=== PATIENT | male | born 1955 | race African-American/Black ===

== ENCOUNTER 2016-05-25 17:34 | Inpatient (IN) | payer MEDICARE, MEDICAID ==
[~2016-05-25] VITALS: Ht 167.6 cm; Wt 54.9 kg
[~2016-05-25 17:34] MED LIST: ACET-2178 PO; ALBU2.5V13 IH; AMIO100T4 PO; ASCO500C6 PO; ASPI-1035 PO; CINA30 PO; CLON0.1T PO; DIPH25CA83 PO; DIPH50CA4 IM; DOCU-138 PO; FAMO20TA8 PO; FERR-63 PO; FLEET ENEMA PR; GUAI-735 PO; LACT10SO6 PO; LISI-604 PO; LOPE2TAB26 PO; LOSA25TA12 PO; METO50TA5 PO; NEPVIT PO; NITR0.4T3 SL; ONDA4SOL2 PO; WARF4TAB40 PO; WARF5TAB76 PO; WARF6TAB22 PO; ZINC SULFATE PO; ZOLP5TAB8 PO; [UNRECOGNIZED DRUG - OTHER] PO; renvela PO
[2016-05-25] MEDS ORDERED: VANCOMYCIN 1 G PREMIX 200 ML IV ONE (18:30)
[2016-05-25] MEDS ORDERED: PIPERACILLIN/TAZ 3.375G PREMIX 50 ML IV ONE (18:30)
[2016-05-25 18:55] LABS: HEMATOCRIT. 32.8 % (42.0-52.0); HEMOGLOBIN. 10.5 g/dL (14.0-18.0); MEAN CORPUSCULAR HEMOGLOBIN 30.1 pg (28.0-32.0); MEAN CORPUSCULAR HGB CONC 32.1 g/dL (31.0-37.0); MEAN CORPUSCULAR VOLUME 93.8 fL (80.0-94.0); MEAN PLATELET VOLUME 6.8 fl (7.4-10.4); PLATELET 168 x1000/uL (130-400); RED CELL DISTRIBUTION WIDTH 19.2 % (11.6-14.6); WHITE BLOOD COUNT 6.3 x1000/uL (4.5-11.0)
[2016-05-25 18:57] LABS: DIFFERENTIAL COMMENT 1
[2016-05-25 18:59] LABS: INR 1.4; PROTHROMBIN TIME 14.6 sec
[2016-05-25 19:01] LABS: CHLORIDE 95 mEq/L (98-107); INDEX HEMOLYSI 1 (1-3); INDEX ICTERIC 1 (1-4); INDEX LIPEMIC 1 (1-3)
[2016-05-25 19:07] LABS: ALANINE AMINOTRANSFERASE 20 IU/L (13-61); ALBUMIN 3.1 g/dL (3.4-5.0); ANION GAP 15; CALCIUM 8.3 mg/dL (8.5-10.1); CARBON DIOXIDE 33 mEq/L (21-32); UREA NITROGEN BLOOD 23 mg/dL (7-21); eGFR 18 mL/min (>60)
[2016-05-25 19:10] LABS: PLATELET ESTIMATE NORMAL
[2016-05-25] MEDS ORDERED: VANCOMYCIN 1 G PREMIX 200 ML IV SCH (23:45)
[2016-05-25] MEDS ORDERED: DOCUSATE SODIUM 100MG CAPSULE PO PRN (23:45)
[2016-05-25] MEDS ORDERED: HYDROCODONE/ACETAMINOPHEN 10/325MG TABLET PO PRN (23:45)
[2016-05-25] MEDS ORDERED: ONDANSETRON HCL 4MG/2ML VIAL IV PRN (23:45)
[2016-05-25] MEDS ORDERED: IPRATROPIUM/ALBUTEROL 0.5-3(2.5)MG/3ML NEB INH PRN (23:45)
[2016-05-25] MEDS ORDERED: NA PHOS,M-B/NA PHOS,DI-BA ENEMA 118ML PR PRN (23:45)
[2016-05-25] MEDS ORDERED: GUAIFENESIN 200MG/10ML SUGAR FREE UDC PO PRN (23:45)
[2016-05-25] MEDS ORDERED: CLONIDINE 0.1MG TABLET PO PRN (23:45)
[2016-05-25] MEDS ORDERED: MAGNESIUM/ALUMINUM HYDROXIDE/SIMETHICONE 30ML UDC PO PRN (23:45)
[2016-05-25] MEDS ORDERED: HYDROCODONE/APAP 7.5/325MG 1 TAB TABLET PO PRN (23:45)
[2016-05-25] MEDS ORDERED: HYDROMORPHONE HCL/PF 2MG/ML CPJ IV PRN (23:45)
[2016-05-26] VITALS (7 sets, daily range): BP systolic 85–131; BP diastolic 59–85
[2016-05-26] MEDS ORDERED: ACETAMINOPHEN 325MG TABLET PO PRN ×2 (01:00→13:36)
[2016-05-26] MEDS ORDERED: CLONIDINE 0.1MG TABLET PO PRN (01:00)
[2016-05-26 01:08] LABS: CALCIUM 8.4 mg/dL (8.5-10.1)
[2016-05-26] MEDS ORDERED: FAMOTIDINE 20MG TABLET PO SCH (01:15)
[2016-05-26] MEDS ORDERED: SEVE800T8 PO (01:17)
[2016-05-26] MEDS ORDERED: ONDA4TAB5 PO (01:17)
[2016-05-26] MEDS ORDERED: METO50TA5 PO (01:17)
[2016-05-26 06:41] LABS: HEMATOCRIT. 31.6 % (42.0-52.0); HEMOGLOBIN. 10.2 g/dL (14.0-18.0); MEAN CORPUSCULAR HEMOGLOBIN 30.3 pg (28.0-32.0); MEAN CORPUSCULAR HGB CONC 32.4 g/dL (31.0-37.0); MEAN CORPUSCULAR VOLUME 93.5 fL (80.0-94.0); MEAN PLATELET VOLUME 6.9 fl (7.4-10.4); PLATELET 193 x1000/uL (130-400); RED BLOOD CELL COUNT 3.38 mill/uL (4.7-6.1); RED CELL DISTRIBUTION WIDTH 19.3 % (11.6-14.6); WHITE BLOOD COUNT 6.5 x1000/uL (4.5-11.0)
[2016-05-26] MEDS ORDERED: DEXTROSE 50% WATER 50ML SYRINGE IV PRN (06:45)
[2016-05-26] MEDS: BLOOD SUGAR DIAGNOSTIC STRIP TEST SCH ×4 (07:20→21:54)
[2016-05-26 07:36] LABS: CHLORIDE 95 mEq/L (98-107); INDEX HEMOLYSI 2 (1-3); INDEX ICTERIC 1 (1-4); INDEX LIPEMIC 1 (1-3)
[2016-05-26 08:00] LABS: ALANINE AMINOTRANSFERASE 16 IU/L (13-61); ALBUMIN 2.9 g/dL (3.4-5.0); ANION GAP 17; CALCIUM 8.4 mg/dL (8.5-10.1); CARBON DIOXIDE 30 mEq/L (21-32); HDL CHOLESTEROL 51 mg/dL (40-59); LDL CHOLESTEROL 52 mg/dL (5-100); TRIGLYCERIDE 51 mg/dL (0-150); UREA NITROGEN BLOOD 29 mg/dL (7-21); eGFR 14 mL/min (>60)
[2016-05-26] MEDS: LISINOPRIL 20MG TABLET PO SCH ×2 (09:00→21:00)
[2016-05-26] MEDS: METOPROLOL TARTRATE 50MG TABLET PO SCH ×2 (09:00→21:00)
[2016-05-26] MEDS ORDERED: WARFARIN SODIUM 5MG TABLET PO SCH (09:00)
[2016-05-26] MEDS ORDERED: LOSARTAN POTASSIUM 25 MG TABLET PO SCH (09:00)
[2016-05-26] MEDS ORDERED: METOPROLOL TARTRATE 50MG TABLET PO SCH (09:00)
[2016-05-26] MEDS ORDERED: WARFARIN SODIUM 4MG TABLET PO SCH (09:00)
[2016-05-26 09:40] LABS: DIFFERENTIAL COMMENT 1
[2016-05-26] MEDS: AMIODARONE HCL 200 MG TABLET PO SCH (09:57)
[2016-05-26] MEDS: CINACALCET HCL 30MG TABLET PO SCH (09:57)
[2016-05-26] MEDS: FERROUS SULFATE 325MG TABLET PO SCH ×3 (09:57→18:40)
[2016-05-26] MEDS: DOCUSATE SODIUM 100MG CAPSULE PO SCH (09:57)
[2016-05-26] MEDS: ENOXAPARIN 30MG/0.3ML SYR SUBCUT SCH (09:59)
[2016-05-26] MEDS ORDERED: SODIUM CHLORIDE 0.9% 10ML VIAL ONE (11:28)
[2016-05-26] MEDS ORDERED: IOHEXOL-350 100 ML BOTTLE ONE (11:28)
[2016-05-26 12:16] LABS: T4 FREE 1.56 ng/dL (0.76-1.46)
[2016-05-26 12:24] LABS: THYROID STIMULATING HORMONE 2.6 uIU/mL (0.36-3.74)
[2016-05-26 16:06] LABS: PLATELET ESTIMATE NORMAL
[2016-05-26 17:02] LABS: CREATINE KINASE MB FRACTION 4.4 ng/mL (0.5-3.6); TROPONIN I 0.04 ng/mL (0.00-0.04)
[2016-05-26] MEDS: WARFARIN SODIUM 5MG TABLET PO SCH (18:41)
[2016-05-26] MEDS ORDERED: VANCOMYCIN 1 G PREMIX 200 ML IV SCH (21:00)
[2016-05-26] MEDS: FAMOTIDINE 20MG TABLET PO SCH (21:53)
[2016-05-26] MEDS: ZOLPIDEM TARTRATE 5MG TABLET PO SCH (21:53)
[2016-05-27] VITALS (7 sets, daily range): BP systolic 88–115; BP diastolic 40–89
[2016-05-27 04:04] LABS: CREATINE KINASE MB FRACTION 3.4 ng/mL (0.5-3.6); TROPONIN I 0.04 ng/mL (0.00-0.04)
[2016-05-27 05:25] LABS: INR 1.4
[2016-05-27 05:29] LABS: HEMATOCRIT. 31.2 % (42.0-52.0); HEMOGLOBIN. 10.1 g/dL (14.0-18.0); MEAN CORPUSCULAR HEMOGLOBIN 30.6 pg (28.0-32.0); MEAN CORPUSCULAR HGB CONC 32.5 g/dL (31.0-37.0); MEAN CORPUSCULAR VOLUME 94.2 fL (80.0-94.0); MEAN PLATELET VOLUME 6.9 fl (7.4-10.4); PLATELET 138 x1000/uL (130-400); RED BLOOD CELL COUNT 3.31 mill/uL (4.7-6.1); RED CELL DISTRIBUTION WIDTH 19.1 % (11.6-14.6); WHITE BLOOD COUNT 5.7 x1000/uL (4.5-11.0)
[2016-05-27] MEDS: BLOOD SUGAR DIAGNOSTIC STRIP TEST SCH ×4 (05:34→21:32)
[2016-05-27 05:51] LABS: CALCIUM 8.2 mg/dL (8.5-10.1)
[2016-05-27 05:55] LABS: CREATINE KINASE MB FRACTION 3.2 ng/mL (0.5-3.6); TROPONIN I 0.04 ng/mL (0.00-0.04)
[2016-05-27 06:46] LABS: DIFFERENTIAL COMMENT 1
[2016-05-27 08:18] LABS: ATYPICAL LYMPHOCYTES 1
[2016-05-27 08:22] LABS: PLATELET ESTIMATE NORMAL
[2016-05-27] MEDS: LISINOPRIL 20MG TABLET PO SCH ×2 (09:47→21:00)
[2016-05-27] MEDS: AMIODARONE HCL 200 MG TABLET PO SCH (09:47)
[2016-05-27] MEDS: DOCUSATE SODIUM 100MG CAPSULE PO SCH (09:47)
[2016-05-27] MEDS: ENOXAPARIN 30MG/0.3ML SYR SUBCUT SCH (09:47)
[2016-05-27] MEDS: CINACALCET HCL 30MG TABLET PO SCH (09:47)
[2016-05-27] MEDS: FERROUS SULFATE 325MG TABLET PO SCH ×3 (09:47→17:20)
[2016-05-27] MEDS ORDERED: SODIUM CHLORIDE 0.9% 100 ML IV ONE (12:30)
[2016-05-27] MEDS ORDERED: SODIUM CHLORIDE 0.9% 200 ML IV ONE (12:30)
[2016-05-27] MEDS ORDERED: IOHEXOL-350 100 ML BOTTLE ONE (14:24)
[2016-05-27] MEDS ORDERED: SODIUM CHLORIDE 0.9% 10ML VIAL ONE (14:24)
[2016-05-27] MEDS: MEROPENEM 500MG in NORMAL SALINE 50ML IV SCH (17:20)
[2016-05-27] MEDS: DIPHENHYDRAMINE 50MG/ML VIAL IV PRN ×2 (17:20→23:40)
[2016-05-27] MEDS ORDERED: WARFARIN SODIUM 3MG TABLET PO SCH (18:00)
[2016-05-27] MEDS: METOPROLOL TARTRATE 50MG TABLET PO SCH (21:00)
[2016-05-27] MEDS: ZOLPIDEM TARTRATE 5MG TABLET PO SCH (21:40)
[2016-05-27] MEDS: FAMOTIDINE 20MG TABLET PO SCH (21:40)
[2016-05-28] VITALS: BP 96/69
[2016-05-28] MEDS ORDERED: VANCOMYCIN 500 MG PREMIX 100 ML IV SCH (03:00)
[2016-05-28 04:00] VITALS: BP 103/82
[2016-05-28 05:46] LABS: INR 1.5; PROTHROMBIN TIME 15.9 sec
[2016-05-28] MEDS: BLOOD SUGAR DIAGNOSTIC STRIP TEST SCH ×4 (06:23→21:31)
[2016-05-28 07:55] VITALS: BP 93/34
[2016-05-28 08:00] VITALS: BP 131/98
[2016-05-28] MEDS: DOCUSATE SODIUM 100MG CAPSULE PO SCH (08:49)
[2016-05-28] MEDS: AMIODARONE HCL 200 MG TABLET PO SCH (08:49)
[2016-05-28] MEDS: CINACALCET HCL 30MG TABLET PO SCH (08:49)
[2016-05-28] MEDS: FERROUS SULFATE 325MG TABLET PO SCH ×3 (08:49→18:12)
[2016-05-28] MEDS: METOPROLOL TARTRATE 50MG TABLET PO SCH ×2 (08:50→21:00)
[2016-05-28] MEDS: LISINOPRIL 20MG TABLET PO SCH ×2 (08:51→21:00)
[2016-05-28] MEDS: ENOXAPARIN 30MG/0.3ML SYR SUBCUT SCH (08:51)
[2016-05-28] MEDS ORDERED: LORAZEPAM 2MG/ML CPJ IV PRN (10:00)
[2016-05-28 11:55] VITALS: BP 149/77
[2016-05-28] MEDS: WARFARIN SODIUM 5MG TABLET PO SCH (18:00)
[2016-05-28] MEDS: MEROPENEM 500MG in NORMAL SALINE 50ML IV SCH (18:12)
[2016-05-28 20:00] VITALS: BP 99/65
[2016-05-28] MEDS: ZOLPIDEM TARTRATE 5MG TABLET PO SCH (21:32)
[2016-05-28] MEDS: FAMOTIDINE 20MG TABLET PO SCH (21:32)
[2016-05-28] MEDS: DIPHENHYDRAMINE 50MG/ML VIAL IV PRN (22:26)
[2016-05-29] VITALS (10 sets, daily range): BP systolic 74–143; BP diastolic 31–76
[2016-05-29 06:16] LABS: INR 1.5; PROTHROMBIN TIME 15.1 sec
[2016-05-29] MEDS: BLOOD SUGAR DIAGNOSTIC STRIP TEST SCH ×4 (07:20→21:00)
[2016-05-29] MEDS: LISINOPRIL 20MG TABLET PO SCH ×2 (09:00→21:00)
[2016-05-29] MEDS: DOCUSATE SODIUM 100MG CAPSULE PO SCH (09:11)
[2016-05-29] MEDS: FERROUS SULFATE 325MG TABLET PO SCH ×3 (09:11→17:30)
[2016-05-29] MEDS: CINACALCET HCL 30MG TABLET PO SCH (09:11)
[2016-05-29] MEDS: AMIODARONE HCL 200 MG TABLET PO SCH (09:12)
[2016-05-29] MEDS: ENOXAPARIN 30MG/0.3ML SYR SUBCUT SCH (09:13)
[2016-05-29] MEDS: METOPROLOL TARTRATE 50MG TABLET PO SCH ×2 (09:15→21:00)
[2016-05-29] MEDS: DIPHENHYDRAMINE 50MG/ML VIAL IV PRN (10:41)
[2016-05-29] MEDS: WARFARIN SODIUM 5MG TABLET PO SCH (17:31)
[2016-05-29] MEDS: MEROPENEM 500MG in NORMAL SALINE 50ML IV SCH (17:33)
[2016-05-29] MEDS: ZOLPIDEM TARTRATE 5MG TABLET PO SCH (21:00)
[2016-05-29] MEDS ORDERED: SODIUM CHLORIDE 0.9% 250 ML IV ONE (21:00)
[2016-05-29] MEDS: FAMOTIDINE 20MG TABLET PO SCH (22:30)
[2016-05-30] VITALS (7 sets, daily range): BP systolic 94–157; BP diastolic 43–104
[2016-05-30 07:16] LABS: HEMATOCRIT. 30.3 % (42.0-52.0); HEMOGLOBIN. 9.7 g/dL (14.0-18.0); MEAN CORPUSCULAR HEMOGLOBIN 30.2 pg (28.0-32.0); MEAN CORPUSCULAR VOLUME 94.2 fL (80.0-94.0); MEAN PLATELET VOLUME 7.4 fl (7.4-10.4); PLATELET 141 x1000/uL (130-400); RED BLOOD CELL COUNT 3.22 mill/uL (4.7-6.1); RED CELL DISTRIBUTION WIDTH 18.9 % (11.6-14.6); WHITE BLOOD COUNT 4.9 x1000/uL (4.5-11.0)
[2016-05-30] MEDS: BLOOD SUGAR DIAGNOSTIC STRIP TEST SCH ×4 (07:20→21:58)
[2016-05-30 07:33] LABS: INR 1.4
[2016-05-30 07:36] LABS: DIFFERENTIAL COMMENT 1
[2016-05-30 07:55] LABS: CALCIUM 7.7 mg/dL (8.5-10.1)
[2016-05-30] MEDS: AMIODARONE HCL 200 MG TABLET PO SCH (08:38)
[2016-05-30] MEDS: LISINOPRIL 20MG TABLET PO SCH ×2 (08:38→21:00)
[2016-05-30] MEDS: FERROUS SULFATE 325MG TABLET PO SCH ×3 (08:44→17:15)
[2016-05-30] MEDS: ENOXAPARIN 30MG/0.3ML SYR SUBCUT SCH (08:45)
[2016-05-30] MEDS: DOCUSATE SODIUM 100MG CAPSULE PO SCH (08:45)
[2016-05-30] MEDS: CINACALCET HCL 30MG TABLET PO SCH (08:45)
[2016-05-30 09:57] LABS: ANISOCYTOSIS 1+
[2016-05-30 09:58] LABS: PLATELET ESTIMATE NORMAL
[2016-05-30] MEDS: WARFARIN SODIUM 5MG TABLET PO SCH (17:15)
[2016-05-30] MEDS: MEROPENEM 500MG in NORMAL SALINE 50ML IV SCH (17:15)
[2016-05-30] MEDS: METOPROLOL TARTRATE 50MG TABLET PO SCH (21:00)
[2016-05-30] MEDS: FAMOTIDINE 20MG TABLET PO SCH (21:56)
[2016-05-30] MEDS: ZOLPIDEM TARTRATE 5MG TABLET PO SCH (21:56)
[2016-05-31 04:00] VITALS: BP 103/56
[2016-05-31 05:43] LABS: INR 1.5
[2016-05-31] MEDS: BLOOD SUGAR DIAGNOSTIC STRIP TEST SCH ×4 (06:31→21:26)
[2016-05-31] MEDS: LISINOPRIL 20MG TABLET PO SCH ×2 (08:26→21:38)
[2016-05-31] MEDS: METOPROLOL TARTRATE 50MG TABLET PO SCH ×2 (08:26→21:37)
[2016-05-31] MEDS: AMIODARONE HCL 200 MG TABLET PO SCH (08:26)
[2016-05-31] MEDS: ENOXAPARIN 30MG/0.3ML SYR SUBCUT SCH (08:27)
[2016-05-31] MEDS ORDERED: DEXT 5%/0.9% NACL 500 ML IV ONE (08:30)
[2016-05-31 08:44] VITALS: BP 111/39
[2016-05-31] MEDS: CINACALCET HCL 30MG TABLET PO SCH (09:28)
[2016-05-31] MEDS: FERROUS SULFATE 325MG TABLET PO SCH ×3 (09:28→17:50)
[2016-05-31] MEDS: DOCUSATE SODIUM 100MG CAPSULE PO SCH (09:29)
[2016-05-31 12:04] VITALS: BP 129/80
[2016-05-31] MEDS ORDERED: SODIUM CHLORIDE 0.9% 10ML VIAL ONE (12:30)
[2016-05-31] MEDS ORDERED: MIDAZOLAM HCL 2 MG/2 ML VIAL ONE (12:30)
[2016-05-31] MEDS ORDERED: BUPIVACAINE HCL/PF 0.5% (5MG/ML) 10ML ONE (12:30)
[2016-05-31] MEDS ORDERED: LIDOCAINE HCL 1% 20ML VIAL (Pyxis) INJ ONE (12:30)
[2016-05-31] MEDS ORDERED: GENTAMICIN SULF 40MG/ML 2ML VIAL ONE (12:30)
[2016-05-31 16:19] VITALS: BP 130/70
[2016-05-31] MEDS ORDERED: WARFARIN SODIUM 4MG TABLET PO SCH (18:00)
[2016-05-31] MEDS: MEROPENEM 500MG in NORMAL SALINE 50ML IV SCH (18:00)
[2016-05-31 20:00] VITALS: BP 118/80
[2016-05-31] MEDS: ZOLPIDEM TARTRATE 5MG TABLET PO SCH (21:38)
[2016-05-31] MEDS: FAMOTIDINE 20MG TABLET PO SCH (21:41)
[2016-06-01] VITALS: BP 102/70
[2016-06-01 03:36] VITALS: BP 95/68
[2016-06-01] MEDS: DIPHENHYDRAMINE 50MG/ML VIAL IV PRN (04:01)
[2016-06-01 05:55] LABS: INR 1.6; PROTHROMBIN TIME 16.1 sec
[2016-06-01] MEDS: BLOOD SUGAR DIAGNOSTIC STRIP TEST SCH ×2 (06:04→13:19)
[2016-06-01 06:56] LABS: HEMATOCRIT. 32.1 % (42.0-52.0); HEMOGLOBIN. 10.4 g/dL (14.0-18.0); MEAN CORPUSCULAR HEMOGLOBIN 30.1 pg (28.0-32.0); MEAN CORPUSCULAR HGB CONC 32.3 g/dL (31.0-37.0); MEAN CORPUSCULAR VOLUME 93.1 fL (80.0-94.0); MEAN PLATELET VOLUME 7.7 fl (7.4-10.4); PLATELET 129 x1000/uL (130-400); RED BLOOD CELL COUNT 3.45 mill/uL (4.7-6.1); RED CELL DISTRIBUTION WIDTH 18.7 % (11.6-14.6); WHITE BLOOD COUNT 6.6 x1000/uL (4.5-11.0)
[2016-06-01 07:25] LABS: DIFFERENTIAL COMMENT 1
[2016-06-01 08:00] VITALS: BP 109/66
[2016-06-01] MEDS: ENOXAPARIN 30MG/0.3ML SYR SUBCUT SCH (09:00)
[2016-06-01] MEDS: DOCUSATE SODIUM 100MG CAPSULE PO SCH (10:47)
[2016-06-01] MEDS: FERROUS SULFATE 325MG TABLET PO SCH ×3 (10:47→18:05)
[2016-06-01] MEDS: LISINOPRIL 20MG TABLET PO SCH ×2 (10:47→21:00)
[2016-06-01] MEDS: CINACALCET HCL 30MG TABLET PO SCH (10:47)
[2016-06-01] MEDS: AMIODARONE HCL 200 MG TABLET PO SCH (10:48)
[2016-06-01 11:35] LABS: PLATELET ESTIMATE SLIGHTLY DECREASED
[2016-06-01 11:36] LABS: ANISOCYTOSIS 2+
[2016-06-01 12:00] VITALS: BP 107/51
[2016-06-01 16:00] VITALS: BP 134/82
[2016-06-01] MEDS ORDERED: HYDROCODONE/ACETAMINOPHEN 5/325MG TABLET PO PRN (16:15)
[2016-06-01] MEDS ORDERED: WARFARIN SODIUM 4MG TABLET PO SCH (18:00)
[2016-06-01] MEDS: MEROPENEM 500MG in NORMAL SALINE 50ML IV SCH (18:05)
[2016-06-01 20:00] VITALS: BP 99/49
[2016-06-01] MEDS: METOPROLOL TARTRATE 50MG TABLET PO SCH (21:00)
[2016-06-01] MEDS: FAMOTIDINE 20MG TABLET PO SCH (21:07)
[2016-06-02] VITALS (7 sets, daily range): BP systolic 84–116; BP diastolic 38–78
[2016-06-02 06:08] LABS: INR 1.6; PROTHROMBIN TIME 17.1 sec
[2016-06-02] MEDS: ENOXAPARIN 30MG/0.3ML SYR SUBCUT SCH (09:00)
[2016-06-02] MEDS: LISINOPRIL 20MG TABLET PO SCH ×2 (09:00→20:14)
[2016-06-02] MEDS: METOPROLOL TARTRATE 50MG TABLET PO SCH ×2 (09:00→20:14)
[2016-06-02] MEDS: BLOOD SUGAR DIAGNOSTIC STRIP TEST SCH (09:26)
[2016-06-02] MEDS: CINACALCET HCL 30MG TABLET PO SCH (09:47)
[2016-06-02] MEDS: AMIODARONE HCL 200 MG TABLET PO SCH (09:48)
[2016-06-02] MEDS: DOCUSATE SODIUM 100MG CAPSULE PO SCH (09:48)
[2016-06-02] MEDS: FERROUS SULFATE 325MG TABLET PO SCH ×3 (09:49→17:42)
[2016-06-02] MEDS ORDERED: SODIUM CHLORIDE 0.9% 500 ML IV ONE (16:30)
[2016-06-02] MEDS: DIPHENHYDRAMINE 50MG/ML VIAL IV PRN (17:43)
[2016-06-02] MEDS: MEROPENEM 500MG in NORMAL SALINE 50ML IV SCH (17:45)
[2016-06-02] MEDS: WARFARIN SODIUM 5MG TABLET PO SCH (19:30)
[2016-06-02] MEDS: FAMOTIDINE 20MG TABLET PO SCH (20:35)
[2016-06-03] VITALS: BP 104/41
[2016-06-03] MEDS: DIPHENHYDRAMINE 50MG/ML VIAL IV PRN (00:08)
[2016-06-03 04:00] VITALS: BP 81/42
[2016-06-03 05:35] LABS: INR 1.7; PROTHROMBIN TIME 17.4 sec
[2016-06-03 07:44] VITALS: BP 92/72
[2016-06-03] MEDS: AMIODARONE HCL 200 MG TABLET PO SCH (09:00)
[2016-06-03] MEDS: LISINOPRIL 20MG TABLET PO SCH (09:00)
[2016-06-03] MEDS: BLOOD SUGAR DIAGNOSTIC STRIP TEST SCH (09:00)
[2016-06-03] MEDS: CINACALCET HCL 30MG TABLET PO SCH (09:43)
[2016-06-03] MEDS: FERROUS SULFATE 325MG TABLET PO SCH ×2 (09:43→14:47)
[2016-06-03] MEDS: DOCUSATE SODIUM 100MG CAPSULE PO SCH (09:43)
[2016-06-03] MEDS: ENOXAPARIN 30MG/0.3ML SYR SUBCUT SCH (09:44)
[2016-06-03 12:00] VITALS: BP 94/45
== END 2016-06-03 14:40 | DRG 255 ==
LOC: ER 17:36 → 6WST 21:42
PROVIDERS: ADMIT Internal Medicine; ATTEND Internal Medicine
PROC: 5A1D60Z (ICD-10-PCS; 2016-05-26)
PROC: 02HV33Z Insertion of Infusion Device into Superior Vena Cava, Percutaneous Approach (ICD-10-PCS; 2016-05-27)
PROC: B5181ZA Fluoroscopy of Superior Vena Cava using Low Osmolar Contrast, Guidance (ICD-10-PCS; 2016-05-27)
PROC: B548ZZA Ultrasonography of Superior Vena Cava, Guidance (ICD-10-PCS; 2016-05-27)
PROC: 02PYX3Z Removal of Infusion Device from Great Vessel, External Approach (ICD-10-PCS; 2016-05-27)
PROC: 0Y6X0Z0 Detachment at Right 5th Toe, Complete, Open Approach (ICD-10-PCS; principal; 2016-06-01)
DX: E11.52 Type 2 diabetes mellitus with diabetic peripheral angiopathy with gangrene (principal); N18.6 End stage renal disease; I13.2 Hypertensive heart and chronic kidney disease with heart failure and with stage 5 chronic kidney disease, or end stage renal disease; E86.0 Dehydration; I50.9 Heart failure, unspecified; I25.10 Atherosclerotic heart disease of native coronary artery without angina pectoris; D64.9 Anemia, unspecified; E11.22 Type 2 diabetes mellitus with diabetic chronic kidney disease; E78.5 Hyperlipidemia, unspecified; I27.2 Other secondary pulmonary hypertension; K21.9 Gastro-esophageal reflux disease without esophagitis; Z86.73 Personal history of transient ischemic attack (TIA), and cerebral infarction without residual deficits; Z99.2 Dependence on renal dialysis; Z79.899 Other long term (current) drug therapy
CPT/HCPCS: 36415; 36569; 71010; 73620; 73630; 75635; 76937; 77001; 80048; 80053; 80061; 80202; 82550; 82553; 82962; 83036; 83605; 83880; 84439; 84443; 84484; 85025; 85379; 85610; 86850; 86870; 86900; 87040; 88305; 88311; 93005; 93306; 93923; 96365; 96366; 96367; 99285; A4216; C1725; C1893; J1200; J1580; J1650; J2185; J2250; J2543; J3370; J3490; J7030; J7040; J7042; J7050; Q9967

== ENCOUNTER 2018-05-16 12:43 | Inpatient (IN) | payer MEDICARE, MEDICAID ==
[~2018-05-16] VITALS: Ht 167.6 cm; Wt 64.9 kg
[~2018-05-16 12:43] MED LIST changes: -ASPI-1035 PO; +ASPI-1159 PO; +METO-539 PO; -METO50TA5 PO; -NITR0.4T3 SL; +NITR0.4T49 SL; +ONDA4TAB5 PO; +SEVE800T8 PO; -WARF4TAB40 PO; -WARF5TAB76 PO; -WARF6TAB22 PO
[2018-05-16] MEDS ORDERED: VANCOMYCIN 1 G PREMIX 200 ML IV ONE (14:45)
[2018-05-16] MEDS ORDERED: SODIUM CHLORIDE 0.9% 1000ML BAG (SEPSIS BOLUS) IV ONE (14:45)
[2018-05-16] MEDS ORDERED: PIPERACILLIN/TAZ 3.375G PREMIX 50 ML IV ONE (14:45)
[2018-05-16 15:22] LABS: HEMATOCRIT. 29.1 % (42.0-52.0); HEMOGLOBIN. 9.4 g/dL (14.0-18.0); MEAN CORPUSCULAR VOLUME 95.9 fL (80.0-94.0); MEAN PLATELET VOLUME 6.9 fl (7.4-10.4); PLATELET 239 x1000/uL (130-400); RED BLOOD CELL COUNT 3.04 mill/uL (4.7-6.1); RED CELL DISTRIBUTION WIDTH 16.8 % (11.6-14.6)
[2018-05-16 15:28] LABS: CHLORIDE 102 mEq/L (98-107)
[2018-05-16 15:29] LABS: INR 1.5; PARTIAL THROMBOPLASTIN TIME 36.6 sec (23.4-31.0); PROTHROMBIN TIME 14.5 sec (9.1-11.1)
[2018-05-16 15:56] LABS: PLATELET ESTIMATE NORMAL
[2018-05-16] MEDS ORDERED: FUROSEMIDE 40MG/4ML VIAL IVP ONE (16:30)
[2018-05-16] MEDS ORDERED: MAGNESIUM/ALUMINUM HYDROXIDE/SIMETHICONE 30ML UDC PO PRN (23:00)
[2018-05-16] MEDS ORDERED: ACETAMINOPHEN 325MG TABLET PO PRN (23:00)
[2018-05-16] MEDS ORDERED: ONDANSETRON HCL 4MG/2ML INJ IV PRN (23:00)
[2018-05-16] MEDS ORDERED: HYDROCODONE/ACETAMINOPHEN 10/325MG TABLET PO PRN (23:00)
[2018-05-16] MEDS ORDERED: LORAZEPAM 2MG/ML CPJ IV PRN (23:00)
[2018-05-16] MEDS ORDERED: IPRATROPIUM/ALBUTEROL 0.5-3(2.5)MG/3ML NEB INH PRN (23:00)
[2018-05-16] MEDS ORDERED: MORPHINE SULFATE 4 MG/ML CPJ (NOT FOR IM USE) IV PRN (23:00)
[2018-05-16] MEDS ORDERED: DIPHENHYDRAMINE 50MG/ML VIAL IV PRN (23:00)
[2018-05-16] MEDS ORDERED: CLONIDINE 0.1MG TABLET PO PRN (23:00)
[2018-05-16] MEDS ORDERED: DOCUSATE SODIUM 100MG CAPSULE PO PRN (23:00)
[2018-05-17 05:25] LABS: CHLORIDE 105 mEq/L (98-107)
[2018-05-17 05:27] LABS: HEMATOCRIT. 28.1 % (42.0-52.0); HEMOGLOBIN. 8.8 g/dL (14.0-18.0); MEAN CORPUSCULAR HEMOGLOBIN 30.4 pg (28.0-32.0); MEAN CORPUSCULAR VOLUME 96.4 fL (80.0-94.0); MEAN PLATELET VOLUME 7.2 fl (7.4-10.4); PLATELET 195 x1000/uL (130-400); RED BLOOD CELL COUNT 2.91 mill/uL (4.7-6.1); RED CELL DISTRIBUTION WIDTH 17.1 % (11.6-14.6)
[2018-05-17 05:33] LABS: HDL CHOLESTEROL 42 mg/dL (40-59); LDL CHOLESTEROL 56 mg/dL (5-100)
[2018-05-17 06:21] LABS: PLATELET ESTIMATE NORMAL
[2018-05-17] MEDS ORDERED: NA PHOS,M-B/NA PHOS,DI-BA ENEMA 118ML PR PRN (09:00)
[2018-05-17 16:41] VITALS: BP 153/75
[2018-05-17 20:00] VITALS: BP 141/82
[2018-05-18] VITALS: BP 155/116
[2018-05-18 04:00] VITALS: BP 155/86
[2018-05-18 08:00] VITALS: BP 163/60
[2018-05-18] MEDS: SODIUM CHLORIDE 0.9% 1,000 ML IV SCH (09:39)
[2018-05-18] MEDS ORDERED: BACLOFEN 10MG TABLET PO SCH ×2 (11:45→12:40)
[2018-05-18 12:00] VITALS: BP 175/108
[2018-05-18 16:00] VITALS: BP 103/67
[2018-05-18] MEDS: PIPERACILLIN/TAZ 2.25G PREMIX 50 ML IV SCH (16:49)
[2018-05-18] MEDS ORDERED: VANCOMYCIN 1 G PREMIX 200 ML IV NR (18:00)
[2018-05-18 20:00] VITALS: BP 142/89
[2018-05-18] MEDS: ASCORBIC ACID 250 MG TABLET PO SCH (20:37)
[2018-05-18] MEDS ORDERED: PIPERACILLIN/TAZOBACTAM 2.25 G in DEXTROSE 5% WATER 50 ML IV SCH (21:00)
[2018-05-19] VITALS (7 sets, daily range): BP systolic 104–153; BP diastolic 67–80
[2018-05-19] MEDS: PIPERACILLIN/TAZ 2.25G PREMIX 50 ML IV SCH ×2 (04:03→17:58)
[2018-05-19] MEDS: SODIUM CHLORIDE 0.9% 1,000 ML IV SCH (07:15)
[2018-05-19] MEDS ORDERED: IOHEXOL-350 100 ML BOTTLE ONE (09:06)
[2018-05-19] MEDS: ZINC SULFATE 220 MG ( 50 ) CAPSULE PO SCH (09:12)
[2018-05-19] MEDS: ASCORBIC ACID 250 MG TABLET PO SCH ×2 (09:12→21:30)
[2018-05-19] MEDS ORDERED: IODIXANOL 320MG/ML 100 ML BOTTLE IV ONE (16:05)
[2018-05-19] MEDS ORDERED: FENTANYL CITRATE/PF 50MCG/ML 2ML VIAL ONE (16:05)
[2018-05-19] MEDS ORDERED: MIDAZOLAM HCL 2 MG/2 ML VIAL ONE (16:05)
[2018-05-19] MEDS ORDERED: LIDOCAINE HCL 1% 20ML VIAL (Pyxis) INJ ONE (16:06)
[2018-05-20] VITALS (11 sets, daily range): BP systolic 85–151; BP diastolic 22–97
[2018-05-20] MEDS: PIPERACILLIN/TAZ 2.25G PREMIX 50 ML IV SCH ×2 (04:33→16:22)
[2018-05-20] MEDS: SODIUM CHLORIDE 0.9% 1,000 ML IV SCH (07:15)
[2018-05-20 07:21] LABS: BASOPHILS % 0.7 % (0.0-2.0); EOSINOPHILS % 2.1 % (0.0-5.0); HEMATOCRIT. 29.5 % (42.0-52.0); HEMOGLOBIN. 9.4 g/dL (14.0-18.0); LYMPHOCYTES % 11.8 % (20.0-50.0); MEAN CORPUSCULAR HEMOGLOBIN 30.6 pg (28.0-32.0); MEAN PLATELET VOLUME 6.8 fl (7.4-10.4); MONOCYTES % 14.9 % (2.0-8.0); NEUTROPHILS % 70.5 % (40.0-76.0); PLATELET 216 x1000/uL (130-400); RED BLOOD CELL COUNT 3.07 mill/uL (4.7-6.1); RED CELL DISTRIBUTION WIDTH 17.1 % (11.6-14.6)
[2018-05-20] MEDS ORDERED: BACITRACIN 15GM TUBE TOP ONE (07:35)
[2018-05-20] MEDS ORDERED: BACITRACIN 50,000 UNITS/VIAL ONE ×2 (07:35→08:23)
[2018-05-20] MEDS ORDERED: NORMAL SALINE 0.9% 10 ML SYR ONE (07:36)
[2018-05-20] MEDS ORDERED: BUPIVACAINE HCL/PF 0.5% (5MG/ML) 10ML ONE (07:36)
[2018-05-20] MEDS ORDERED: LIDOCAINE HCL 1% 20ML VIAL (Pyxis) INJ ONE ×2 (07:36→09:43)
[2018-05-20] MEDS: ZINC SULFATE 220 MG ( 50 ) CAPSULE PO SCH (07:41)
[2018-05-20] MEDS: ASCORBIC ACID 250 MG TABLET PO SCH (07:41)
[2018-05-20 07:51] LABS: CREATINE KINASE MB FRACTION 2.3 ng/mL (0.5-3.6)
[2018-05-20] MEDS ORDERED: GENTAMICIN SULF 40MG/ML 2ML VIAL ONE (08:22)
[2018-05-20] MEDS ORDERED: PROPOFOL 200MG/20ML VIAL IV ONE (08:27)
[2018-05-20] MEDS ORDERED: CEFAZOLIN SODIUM 1000MG/VIAL ONE (08:27)
[2018-05-20] MEDS ORDERED: FENTANYL CITRATE/PF 50MCG/ML 2ML VIAL ONE (08:27)
[2018-05-20] MEDS ORDERED: MIDAZOLAM HCL 2 MG/2 ML VIAL ONE (08:28)
[2018-05-20] MEDS ORDERED: SODIUM CHLORIDE 0.9% 10ML VIAL ONE (08:28)
[2018-05-20] MEDS ORDERED: PHENYLEPHRINE HCL 10 MG/ML 1ML (IV VIAL) IV ONE (08:28)
[2018-05-20] MEDS ORDERED: ONDANSETRON HCL 4MG/2ML INJ ONE (08:28)
[2018-05-20] MEDS ORDERED: ONDANSETRON HCL 4MG/2ML INJ IV PRN (10:30)
[2018-05-20] MEDS ORDERED: MEPERIDINE HCL/PF 25MG/ML CPJ IV PRN (10:30)
[2018-05-20] MEDS ORDERED: VANCOMYCIN 750 MG PREMIX 150 ML IV SCH (21:00)
[2018-05-21] VITALS (11 sets, daily range): BP systolic 95–119; BP diastolic 46–77
[2018-05-21] MEDS: ASCORBIC ACID 250 MG TABLET PO SCH ×3 (00:03→20:23)
[2018-05-21] MEDS: SODIUM CHLORIDE 0.9% 1,000 ML IV SCH (05:38)
[2018-05-21] MEDS: PIPERACILLIN/TAZ 2.25G PREMIX 50 ML IV SCH ×2 (05:38→16:00)
[2018-05-21] MEDS: ZINC SULFATE 220 MG ( 50 ) CAPSULE PO SCH (08:08)
[2018-05-22] VITALS (8 sets, daily range): BP systolic 94–125; BP diastolic 49–74
[2018-05-22] MEDS: PIPERACILLIN/TAZ 2.25G PREMIX 50 ML IV SCH ×2 (04:51→17:53)
[2018-05-22] MEDS: ASCORBIC ACID 250 MG TABLET PO SCH ×2 (09:57→20:30)
[2018-05-22] MEDS: SODIUM CHLORIDE 0.9% 1,000 ML IV SCH (09:57)
[2018-05-22] MEDS: ZINC SULFATE 220 MG ( 50 ) CAPSULE PO SCH (09:57)
[2018-05-23] VITALS (24 sets, daily range): BP systolic 101–141; BP diastolic 39–76
[2018-05-23] MEDS: PIPERACILLIN/TAZ 2.25G PREMIX 50 ML IV SCH (04:18)
[2018-05-23 06:29] LABS: HEMATOCRIT. 27.9 % (42.0-52.0); MEAN CORPUSCULAR HEMOGLOBIN 30.9 pg (28.0-32.0); MEAN CORPUSCULAR VOLUME 95.7 fL (80.0-94.0); MEAN PLATELET VOLUME 7.2 fl (7.4-10.4); PLATELET 176 x1000/uL (130-400); RED BLOOD CELL COUNT 2.92 mill/uL (4.7-6.1); RED CELL DISTRIBUTION WIDTH 17.1 % (11.6-14.6)
[2018-05-23] MEDS: ASCORBIC ACID 250 MG TABLET PO SCH (08:41)
[2018-05-23] MEDS: ZINC SULFATE 220 MG ( 50 ) CAPSULE PO SCH (08:41)
[2018-05-23] MEDS ORDERED: VANCOMYCIN 750 MG PREMIX 150 ML IV SCH (14:00)
[2018-05-23 14:16] LABS: NUCLEATED RED BLOOD CELLS 1 /100 WBC
[2018-05-23 14:17] LABS: PLATELET ESTIMATE NORMAL
== END 2018-05-23 17:00 | DRG 239 ==
LOC: ER 12:56 → 8WST 17:22 → ENRESERV 05-17 13:30 → 3WST 05-19 16:55
PROVIDERS: ADMIT Internal Medicine; ATTEND Internal Medicine
PROC: 5A1D70Z Performance of Urinary Filtration, Intermittent, Less than 6 Hours Per Day (ICD-10-PCS; 2018-05-16)
PROC: 5A1D70Z Performance of Urinary Filtration, Intermittent, Less than 6 Hours Per Day (ICD-10-PCS; 2018-05-18)
PROC: B41C1ZZ Fluoroscopy of Pelvic Arteries using Low Osmolar Contrast (ICD-10-PCS; 2018-05-19)
PROC: B4101ZZ Fluoroscopy of Abdominal Aorta using Low Osmolar Contrast (ICD-10-PCS; 2018-05-19)
PROC: B41G1ZZ Fluoroscopy of Left Lower Extremity Arteries using Low Osmolar Contrast (ICD-10-PCS; 2018-05-19)
PROC: 0Y6N0Z9 Detachment at Left Foot, Partial 1st Ray, Open Approach (ICD-10-PCS; principal; 2018-05-20)
PROC: 0Y6N0ZB Detachment at Left Foot, Partial 2nd Ray, Open Approach (ICD-10-PCS; 2018-05-20)
PROC: 0Y6N0ZC Detachment at Left Foot, Partial 3rd Ray, Open Approach (ICD-10-PCS; 2018-05-20)
PROC: 0Y6N0ZD Detachment at Left Foot, Partial 4th Ray, Open Approach (ICD-10-PCS; 2018-05-20)
PROC: 0Y6N0ZF Detachment at Left Foot, Partial 5th Ray, Open Approach (ICD-10-PCS; 2018-05-20)
PROC: 5A1D70Z Performance of Urinary Filtration, Intermittent, Less than 6 Hours Per Day (ICD-10-PCS; 2018-05-20)
PROC: 5A1D70Z Performance of Urinary Filtration, Intermittent, Less than 6 Hours Per Day (ICD-10-PCS; 2018-05-23)
DX: I70.262 Atherosclerosis of native arteries of extremities with gangrene, left leg (principal); N18.6 End stage renal disease; M86.8X7 Other osteomyelitis, ankle and foot; I13.2 Hypertensive heart and chronic kidney disease with heart failure and with stage 5 chronic kidney disease, or end stage renal disease; E46 Unspecified protein-calorie malnutrition; R65.10 Systemic inflammatory response syndrome (SIRS) of non-infectious origin without acute organ dysfunction; J44.9 Chronic obstructive pulmonary disease, unspecified; E21.3 Hyperparathyroidism, unspecified; I25.10 Atherosclerotic heart disease of native coronary artery without angina pectoris; I48.91 Unspecified atrial fibrillation; I50.9 Heart failure, unspecified; M24.562 Contracture, left knee; Z99.2 Dependence on renal dialysis; Z74.01 Bed confinement status; Z68.23 Body mass index [BMI] 23.0-23.9, adult; Z79.899 Other long term (current) drug therapy
CPT/HCPCS: 36246; 36415; 71045; 73630; 75635; 75710; 80048; 80061; 80202; 82550; 82553; 82962; 83605; 84145; 84443; 84484; 87070; 88305; 88311; 93005; 93923; 94640; 96365; 96367; 96375; 97162; 99291; C1760; C1769; C1893; J0690; J1200; J1580; J1644; J2060; J2250; J2370; J2405; J2543; J2704; J3010; J3370; J3490; J7030; J7050; J7620; Q9967

== ENCOUNTER 2018-11-16 05:50 | Inpatient (IN) | payer MEDICARE, MEDICAID ==
[~2018-11-16] VITALS: Ht 182.9 cm; Wt 76.7 kg
[~2018-11-16 05:50] MED LIST changes: -ASPI-1159 PO; +ASPI-1393 PO; -LOSA25TA12 PO; +LOSA25TA26 PO
[2018-11-16] MEDS ORDERED: SODIUM CHLORIDE 0.9% 1,000 ML IV ONE (06:15)
[2018-11-16 06:48] LABS: HEMATOCRIT. 33.7 % (42.0-52.0); HEMOGLOBIN. 11.3 g/dL (14.0-18.0); MEAN CORPUSCULAR HEMOGLOBIN 31.8 pg (28.0-32.0); MEAN CORPUSCULAR VOLUME 95.1 fL (80.0-94.0); MEAN PLATELET VOLUME 7.3 fl (7.4-10.4); PLATELET 150 x1000/uL (130-400); RED BLOOD CELL COUNT 3.54 mill/uL (4.7-6.1); RED CELL DISTRIBUTION WIDTH 18.5 % (11.6-14.6)
[2018-11-16 06:54] LABS: INR 1.4
[2018-11-16 06:56] LABS: CHLORIDE 94 mEq/L (98-107)
[2018-11-16 08:22] LABS: PLATELET ESTIMATE NORMAL
[2018-11-16] MEDS ORDERED: CLONIDINE 0.1MG TABLET PO PRN (09:15)
[2018-11-16] MEDS ORDERED: HYDROCODONE/ACETAMINOPHEN 5/325MG TABLET PO PRN (09:15)
[2018-11-16] MEDS ORDERED: MAGNESIUM/ALUMINUM HYDROXIDE/SIMETHICONE 30ML UDC PO PRN (09:15)
[2018-11-16] MEDS ORDERED: IPRATROPIUM/ALBUTEROL 0.5-3(2.5)MG/3ML NEB NEB PRN (09:15)
[2018-11-16] MEDS ORDERED: GUAIFENESIN 200MG/10ML SUGAR FREE UDC PO PRN (09:15)
[2018-11-16] MEDS ORDERED: NA PHOS,M-B/NA PHOS,DI-BA ENEMA 118ML PR PRN (09:15)
[2018-11-16] MEDS ORDERED: LORAZEPAM 2MG/ML CPJ IV PRN (09:15)
[2018-11-16] MEDS ORDERED: MORPHINE SULFATE 4 MG/ML CPJ (NOT FOR IM USE) IV PRN (09:15)
[2018-11-16] MEDS ORDERED: DOCUSATE SODIUM 100MG CAPSULE PO PRN (09:15)
[2018-11-16] MEDS ORDERED: ONDANSETRON HCL 4MG/2ML INJ IV PRN (09:15)
[2018-11-16] MEDS ORDERED: DIPHENHYDRAMINE 50MG/ML VIAL IV PRN (09:15)
[2018-11-16] MEDS ORDERED: ACETAMINOPHEN 325MG TABLET PO PRN (09:15)
[2018-11-16 09:30] VITALS: BP 109/74
[2018-11-16] MEDS ORDERED: ENOXAPARIN 30MG/0.3ML SYR SUBCUT SCH (10:00)
[2018-11-16] MEDS: IPRATROPIUM/ALBUTEROL 0.5-3(2.5)MG/3ML NEB HHN PRN ×2 (11:19→16:49)
[2018-11-16 12:00] VITALS: BP 130/59
[2018-11-16] MEDS ORDERED: MOM PO (12:18)
[2018-11-16] MEDS ORDERED: APIX2.5T PO (12:18)
[2018-11-16] MEDS ORDERED: AMLO5TAB88 PO (12:18)
[2018-11-16 13:17] VITALS: BP 109/74
[2018-11-16] MEDS: APIXABAN 2.5 MG TABLET PO SCH ×2 (15:43→20:58)
[2018-11-16 16:00] VITALS: BP 110/47
[2018-11-16 20:00] VITALS: BP 146/69
[2018-11-17] VITALS: BP 139/68
[2018-11-17 04:00] VITALS: BP 145/66
[2018-11-17 08:54] LABS: HEMATOCRIT. 30.2 % (42.0-52.0); MEAN CORPUSCULAR HEMOGLOBIN 31.4 pg (28.0-32.0); MEAN CORPUSCULAR VOLUME 95.1 fL (80.0-94.0); MEAN PLATELET VOLUME 6.9 fl (7.4-10.4); PLATELET 148 x1000/uL (130-400); RED BLOOD CELL COUNT 3.17 mill/uL (4.7-6.1); RED CELL DISTRIBUTION WIDTH 18.5 % (11.6-14.6)
[2018-11-17] MEDS: ASPIRIN 81MG EC TABLET PO SCH (09:05)
[2018-11-17] MEDS: APIXABAN 2.5 MG TABLET PO SCH ×2 (09:05→17:56)
[2018-11-17 10:06] LABS: CHLORIDE 96 mEq/L (98-107)
[2018-11-17 10:28] LABS: T4 FREE 1.84 ng/dL (0.76-1.46)
[2018-11-17 10:29] LABS: HDL CHOLESTEROL 46 mg/dL (40-59); LDL CHOLESTEROL 58 mg/dL (5-100); PLATELET ESTIMATE NORMAL
[2018-11-17 12:00] VITALS: BP 145/63
[2018-11-17 16:00] VITALS: BP 107/35
[2018-11-17 20:00] VITALS: BP 102/69
[2018-11-17] MEDS ORDERED: MORPHINE SULFATE 2 MG/ML CPJ (NOT FOR IM USE) IV PRN (21:32)
[2018-11-18] VITALS: BP 121/67
[2018-11-18 04:00] VITALS: BP 121/44
[2018-11-18 08:00] VITALS: BP 108/58
[2018-11-18] MEDS: APIXABAN 2.5 MG TABLET PO SCH ×2 (09:17→17:50)
[2018-11-18] MEDS: ASPIRIN 81MG EC TABLET PO SCH (09:17)
[2018-11-18 12:00] VITALS: BP 116/73
[2018-11-18 16:00] VITALS: BP 124/84
[2018-11-18 20:30] VITALS: BP 128/46
[2018-11-19 00:42] VITALS: BP 155/81
[2018-11-19 04:00] VITALS: BP 145/78
[2018-11-19 08:00] VITALS: BP 110/52
[2018-11-19] MEDS: ASPIRIN 81MG EC TABLET PO SCH (09:39)
[2018-11-19] MEDS: APIXABAN 2.5 MG TABLET PO SCH (09:39)
[2018-11-19 11:44] VITALS: BP 110/52
[2018-11-19 12:00] VITALS: BP 135/58
== END 2018-11-19 12:00 | DRG 312 ==
LOC: ER 05:50 → 8WST 07:37 → EDBEDREQ 07:53 → EDBEDREQSVC 07:53 → EDBEDREQTM 07:53 → ENRESERV 08:40 → 6WST 11-18 07:30
PROVIDERS: ADMIT Internal Medicine; ATTEND Internal Medicine
PROC: 5A1D70Z Performance of Urinary Filtration, Intermittent, Less than 6 Hours Per Day (ICD-10-PCS; principal; 2018-11-17)
DX: I95.3 Hypotension of hemodialysis (principal); N18.6 End stage renal disease; E46 Unspecified protein-calorie malnutrition; I13.2 Hypertensive heart and chronic kidney disease with heart failure and with stage 5 chronic kidney disease, or end stage renal disease; G93.1 Anoxic brain damage, not elsewhere classified; I25.10 Atherosclerotic heart disease of native coronary artery without angina pectoris; I50.9 Heart failure, unspecified; E11.22 Type 2 diabetes mellitus with diabetic chronic kidney disease; I27.20 Pulmonary hypertension, unspecified; I48.91 Unspecified atrial fibrillation; R09.02 Hypoxemia; I35.0 Nonrheumatic aortic (valve) stenosis; E78.5 Hyperlipidemia, unspecified; J44.9 Chronic obstructive pulmonary disease, unspecified; D63.1 Anemia in chronic kidney disease; K59.00 Constipation, unspecified; Z99.2 Dependence on renal dialysis; Z79.82 Long term (current) use of aspirin; Z68.22 Body mass index [BMI] 22.0-22.9, adult; Z79.01 Long term (current) use of anticoagulants; Z79.899 Other long term (current) drug therapy
CPT/HCPCS: 36415; 71045; 80048; 80061; 82962; 83605; 84145; 84439; 84443; 84484; 93005; 99291; J7030; J7620